=== PATIENT | male | born 1985 | race Caucasian/White ===

== ENCOUNTER 2019-09-28 09:59 | Emergency (ER) | payer BC, OTHER ==
[~2019-09-28] VITALS: Ht 177.8 cm; Wt 112.1 kg
--- NOTE | 2019-09-28 10:27 | PHYS DOC ---
Past History Past Medical History: GERD Past Surgical History: Other Alcohol Use: Rarely Drug Use: None Adult General Chief Complaint Chief Complaint: UPPER EXTREMITY PAIN [facility] HPI Patient is a 34-year-old male who presents with injury to his right biceps tendon. Patient states that he went to swat his large dog because it was in the trash and then he felt a pop in his biceps region and searing pain at the time last night. He states the pain was quite severe last night and today pain level is gone down to moderate. He states the pain is worsened with flexion of the elbow. He denies any other injuries. Patient was seen at urgent care yesterday and they informed him to come in for an ultrasound.[] Review of Systems Review of Systems Constitutional: Denies fever or chills [] Respiratory: Denies cough or shortness of breath [] Cardiovascular: No additional information not addressed in HPI [] Musculoskeletal: Positive right elbow pain [] Integument: Denies rash or skin lesions [] Neurologic: Denies headache, focal weakness or sensory changes [] Allergies Allergies Allergies Coded Allergies Type Severity Reaction Last Updated Verified No Known Drug Allergies 02/07/15 No Physical Exam Physical Exam Constitutional: Well developed, well nourished, no acute distress, non-toxic appearance. [] Cardiovascular:Heart rate regular rhythm, no murmur [] Lungs & Thorax: Bilateral breath sounds clear to auscultation [] Extremities: Exam of right upper extremity demonstrates tenderness around the antecubital fossa with appearance of distal biceps tendon rupture. [] Neurologic: Alert and oriented X 3, no focal deficits noted. [] EKG EKG [] Radiology/Procedures Radiology/Procedures [] Impressions: PROCEDURE: EXTREM NONVASCULAR LTD RIGHT Examination: EXTREM NONVASCULAR LTD RIGHT History: Right upper arm pain approximately elbow. Comparison/Correlation: None Findings: Ultrasound imaging of the right upper extremity was performed. Small fluid collection measuring 1.8 cm x 0.8 cm 0.3 cm is present about the distal fibers of the biceps muscle compatible with myotendinous junction tear. Impression: Tear of the distal biceps myotendinous junction appears to be present. MR again examination is recommended for more definitive assessment. Electronically signed by: Dany Lala MD (09/28/2019 11:22 AM) [facility] DICTATED AND SIGNED BY: DANY LALA MD DATE: 09/28/19 1122 CC: DE ENRIQUEZ Jr. DO; PAVAN POPE MD ~ Course & Med Decision Making Course & Med Decision Making Pertinent Labs and Imaging studies reviewed. (See chart for details) [] Dragon Disclaimer Dragon Disclaimer This electronic medical record was generated, in whole or in part, using a voice recognition dictation system. Departure Departure: Impression: Primary Impression: Rupture of distal biceps tendon Disposition: HOME, SELF-CARE Condition: STABLE Referrals: PAVAN POPE MD (PCP) Patient Instructions: Biceps Tendon Disruption (Distal) with Rehab[facility], Form - Excuse from Work, School, or Physical Activity Scripts Hydrocodone Bit/Acetaminophen (NORCO 5-325 TABLET) 1 Each Tablet 1 TAB PO PRN Q6HRS PRN for PAIN, #20 TAB 0 Refills Prov: ED ENRIQUEZ Jr., DO 09/28/19 Problem Qualifiers Primary Impression: Rupture of distal biceps tendon Encounter type: initial encounter Laterality: right Qualified Codes: S46.211A - Strain of muscle, fascia and tendon of other parts of biceps, right arm, initial encounter ED ENRIQUEZ Jr., DO Sep 28, 2019 10:26
--- NOTE | 2019-09-28 11:25 | RAD ---
Examination: EXTREM NONVASCULAR LTD RIGHT History: Right upper arm pain approximately elbow. Comparison/Correlation: None Findings: Ultrasound imaging of the right upper extremity was performed. Small fluid collection measuring 1.8 cm x 0.8 cm 0.3 cm is present about the distal fibers of the biceps muscle compatible with myotendinous junction tear. Impression: Tear of the distal biceps myotendinous junction appears to be present. MR again examination is recommended for more definitive assessment. Electronically signed by: Ivan Pennington MD (09/28/2019 11:22 AM) [facility]
[2019-09-28] MEDS ORDERED: HYDR-3165 PO (11:32)
[2019-09-28 11:42] VITALS: BP 143/76
== END 2019-09-28 11:39 | disposition home or self-care (01) ==
LOC: ER 09:59
DX: S46.211A Strain of muscle, fascia and tendon of other parts of biceps, right arm, initial encounter (principal); K21.9 Gastro-esophageal reflux disease without esophagitis; X50.1XXA Overexertion from prolonged static or awkward postures, initial encounter; Y93.89 Activity, other specified; Y92.89 Other specified places as the place of occurrence of the external cause; Y99.8 Other external cause status
CPT/HCPCS: 76882; 99284-25

== ENCOUNTER 2020-06-02 16:48 | Emergency (ER) | payer BC ==
[~2020-06-02] VITALS: Ht 177.8 cm; Wt 103.5 kg
[2020-06-02 16:48] VITALS: BP 143/76
[~2020-06-02 16:48] MED LIST: HYDR-3165 PO
--- NOTE | 2020-06-02 17:09 | PHYS DOC ---
Past History Past Medical History: GERD Past Surgical History: No Surgical History Alcohol Use: Occasionally Drug Use: None General Adult EDM: Chief Complaint: LACERATION/AVULSION HPI: HPI: Patient is a 35-year-old male who was avoiding the [facility]rison at [facility] today and ducked under something and lacerated his head on a piece of metal. Patient has a moderate headache and a laceration. Patient states pain is worse with palpation. Patient did not have loss of consciousness or nausea vomiting. Patient has no focal neurological deficits. Review of Systems: Review of Systems: Constitutional: Denies fever or chills Eyes: Denies change in visual acuity HENT: Denies nasal congestion or sore throat Respiratory: Denies cough or shortness of breath Cardiovascular: Denies chest pain or edema GI: Denies abdominal pain, nausea, vomiting, bloody stools or diarrhea : Denies dysuria Musculoskeletal: Denies back pain or joint pain Integument: Denies rash Neurologic: Complains of headache, patient denies focal weakness or sensory changes Endocrine: Denies polyuria or polydipsia Lymphatic: Denies swollen glands Psychiatric: Denies depression or anxiety Heart Score: Risk Factors: Risk Factors: DM, Current or recent (<one month) smoker, HTN, HLP, family history of CAD, obesity. Risk Scores: Score 0 - 3: 2.5% MACE over next 6 weeks - Discharge Home Score 4 - 6: 20.3% MACE over next 6 weeks - Admit for Clinical Observation Score 7 - 10: 72.7% MACE over next 6 weeks - Early Invasive Strategies Current Medications: Current Meds: Current Medications Medications (Trade) Dose Ordered Sig/[facility] Start Time Stop Time Status Last Admin Dose Admin Lidocaine/ Epinephrine (Xylocaine 1%-Epi 1:100,000) 20 ml 1X ONCE 06/02/20 17:15 06/02/20 17:16 UNV Allergies: Allergies: Allergies Coded Allergies Type Severity Reaction Last Updated Verified No Known Drug Allergies 09/28/19 No Physical Exam: PE: Constitutional: Well developed, well nourished, no acute distress, non-toxic appearance. [] HENT: 5 cm laceration to the scalp, bilateral external ears normal, oropharynx moist, no oral exudates, nose normal. [] Eyes: PERRLA, EOMI, conjunctiva normal, no discharge. [] Neck: Normal range of motion, no tenderness, supple, no stridor. [] Cardiovascular:Heart rate regular rhythm, peripheral pulses intact, cap refill brisk Lungs & Thorax: Bilateral breath sounds clear, no respiratory distress Abdomen: Nontender nondistended Skin: Warm, dry, 5 cm laceration to the scalp Back: No tenderness, no CVA tenderness. [] Extremities: No tenderness, no cyanosis, no clubbing, ROM intact, no edema. [] Neurologic: Alert and oriented X 3, normal motor function, normal sensory function, no focal deficits noted. [] Psychologic: Affect normal, judgement normal, mood normal. [] Current Patient Data: Vital Signs: Vital Signs Date Time Temp Pulse Resp B/P (MAP) Pulse Ox O2 Delivery O2 Flow Rate FiO2 06/02/20 16:48 97.2 77 16 143/76 (98) 98 Room Air EKG: EKG: [] Radiology/Procedures: Radiology/Procedures: [] Procedure note: Clinical indication scalp laceration After obtaining verbal consent, the 5 cm scalp laceration was anesthetized with 7 cc of 1% lidocaine with epinephrine. Good anesthesia was achieved. The wound was then copiously irrigated with normal saline. The wound was then closed with 8 dennis. Patient tolerated well. No complications. Course & Med Decision Making: Course & Med Decision Making Pertinent Labs and Imaging studies reviewed. (See chart for details) [] 35-year-old presents with a scalp laceration. No loss of consciousness and a normal neurological exam doubt intracranial hemorrhage. Dragon Disclaimer: Dragon Disclaimer: This electronic medical record was generated, in whole or in part, using a voice recognition dictation system. Departure Departure: Impression: Primary Impression: Scalp laceration Additional Impression: Head injury Disposition: 01 HOME/RESIDENCE PRIOR TO ADM Condition: STABLE Referrals: PAVAN POPE MD (PCP) Stable removal in 1 week in the ER. Patient Instructions: Head Injury, Adult, Staple Wound Closure, [id number] Additional Instructions: EMERGENCY DEPARTMENT GENERAL DISCHARGE INSTRUCTIONS THANK YOU for coming to [facility] Emergency Department (ED) today and trusting us with your care. We trust that you had a positive experience in our Emergency Department. If you wish to speak to the department Management you can contact the emergency department at YOUR FOLLOW UP INSTRUCTIONS ARE FOLLOWS: Do you have a private doctor? If you do not have a private doctor, please ask for a resource list of physicians or clinics that may be able to assist you with follow up care. The Emergency Physician has interpreted your x-rays. The X-ray specialist will also review them. If there is a change in the findings you will be notified in 48 hours when at all possible. A lab test or lab culture may have been done, your results will be reviewed and you will be notified if you need a change in treatment. ADDITIONAL INSTRUCTIONS AND INFORMATION Your care today has been supervised by a physician who is specially trained in emergency care. Many problems require more than one evaluation for a complete diagnosis and treatment. We recommend that you schedule your follow up appointment as recommended to ensure complete treatment of your illness or injury. If you are unable to obtain follow up care and continue to have a problem, or if your condition worsens we recommend that you return to the ED. We are not able to safely determine your condition over the phone nor are we able to give sound medical advice over the phone. For these safety reasons, if you call for medical advice we will ask you to come to the ED for further evaluation If you have any questions regarding these discharge instructions please call the ED at . SAFETY INFORMATION In the interest of safety, wellness, and injury prevention; we encourage you to wear your seatbelt, if you smoke; quit smoking, and we encourage your family to use protective helmet for bicycling and other sporting events that present an increased risk for head injury. IF YOUR SYMPTOMS WORSEN OR NEW SYMPTOMS DEVELOP, OR YOU HAVE CONCERNS ABOUT YOUR CONDITION; OR IF YOUR CONDITION WORSENS WHILE YOU ARE WAITING FOR YOUR FOLLOW UP APPOINTMENT; EITHER CONTACT YOUR PRIMARY CARE DOCTOR, THE PHYSICIAN WHOSE NAME AND NUMBER YOU WERE GIVEN, OR RETURN TO THE ED IMMEDIATELY. Justification of Admission: Justification of Admission: Justification of Admission Dx: N/A HAMIDA GOMES MD Jun 02, 2020 17:09
[2020-06-02] MEDS ORDERED: LIDOCAINE 1%/EPI 1:100,000 20 ML VIAL. IJ ONE (17:15)
== END 2020-06-02 17:50 | disposition home or self-care (01) ==
LOC: ER 16:48
DX: S01.01XA Laceration without foreign body of scalp, initial encounter (principal); K21.9 Gastro-esophageal reflux disease without esophagitis; W26.8XXA Contact with other sharp object(s), not elsewhere classified, initial encounter; Y93.89 Activity, other specified; Y92.513 Shop (commercial) as the place of occurrence of the external cause; Y99.8 Other external cause status
CPT/HCPCS: 12002; 99282